=== PATIENT | female | born 1985 | race Caucasian/White ===

== ENCOUNTER 2020-03-04 10:17 | Emergency (ER) | payer BC, SELFPAY ==
[2020-03-04] VITALS (8 sets, daily range): BP systolic 138–191; BP diastolic 88–114; PULSE 80–102; RESP 15–31; TEMP 36.6; O2SAT 98–99; BMI 33.3
--- NOTE | 2020-03-04 10:31 | DI.RAD.S_ITS ---
PROCEDURE: XR CHEST 1V INDICATIONS: chest pain TECHNIQUE: One view of the chest was acquired. COMPARISON: None. FINDINGS: Surgical changes and devices: None. Lungs and pleura: Lungs are clear. No pleural effusions or pneumothorax. Mediastinum: Mediastinal contours appear normal. Heart size is normal. Bones and chest wall: No suspicious bony lesions. Overlying soft tissues appear unremarkable. IMPRESSION: No acute disease. Dictated by: Petros Crawford M.D. on 03/04/2020 at 10:55 Approved by: Petros Crawford M.D. on 03/04/2020 at 10:56
[2020-03-04 10:39] LABS: Add Manual Diff / Slide Review NO; Basophils Absolute Auto 0 /uL (0-100); Basophils Percent Auto 0.3 % (0-2); Eosinophils Absolute Auto 0 /uL (0-450); Eosinophils Percent Auto 0.3 % (2-4); Hematocrit 40.9 % (36-46); Hemoglobin 13.1 g/dL (12.0-16.0); Lymphocytes Absolute Auto 2200 /uL (1100-4500); Lymphocytes Percent Auto 19.5 % (25-40); Mean Corpuscular Hemoglobin 28.6 PG (26-34); Mean Corpuscular Volume 89.4 fL (80-100); Monocytes Absolute Auto 600 /uL (0-900); Monocytes Percent Auto 5.4 % (3-14); Neutrophils Absolute Auto 8200 /uL (1500-7000); Neutrophils Percent Auto 74.5 % (50-75); Platelet Count 281 X10^3/uL (150-400); Red Blood Cell Count 4.57 X10^6/uL (4.0-5.2); Red Cell Distribution Width 14.2 % (11.6-14.8)
[2020-03-04 10:49] LABS: Alanine Aminotransferase 16 IU/L (<35); Albumin 4.8 g/dL (3.5-5.0); Albumin Globulin Ratio 1.4 (1.0-2.8); Alkaline Phosphatase 91 U/L (38-126); Aspartate Aminotransferase 21 IU/L (14-36); BUN Creatinine Ratio 24.5 (6-22); Bilirubin Total 0.6 mg/dL (0.2-1.3); Blood Urea Nitrogen 13 mg/dL (7-17); Calcium 9.7 mg/dL (8.4-10.2); Carbon Dioxide 28 mmol/L (22-32); Chloride 101 mmol/L (98-107); Creatine Kinase 39 U/L (30-135); Estimated Glomerular Filt Rate > 60.0 mL/min (>60); Globulin 3.5 g/dL (1.7-4.1); Glucose 97 mg/dL (70-100); HEMOLYSIS < 15 (0-50); Lipase 57 U/L (23-300); Potassium 3.3 mmol/L (3.4-5.1); Sodium 138 mmol/L (137-145); Total Protein 8.3 g/dL (6.3-8.2)
[2020-03-04 10:50] LABS: INR 1.2 (0.9-1.3); Prothrombin Time 13.6 SECONDS (10.1-12.7)
--- NOTE | 2020-03-04 10:51 | ED.ALLEREA ---
HPI - Allergic Reaction General Chief complaint: Allergic Reaction Stated complaint: chest pain/throat constriction last night Time Seen by Provider: 03/04/20 10:36 Source: patient Mode of arrival: Ambulatory Limitations: no limitations History of Present Illness HPI narrative: This is a 34-year-old female comes emergency department with complaint of what she thought might be an allergic reaction last night. Patient states she was feeling very well yesterday her lightheaded having some chest discomfort that she describes as tightness. She is supposed to start her menses yesterday and attributed her symptoms to that. Last night her throat felt tight although she never felt like she was short of breath or that she could not breathe. She felt like her stomach was flipping and she had her face felt red. Patient states this is similar to when she has had prior anaphylactic reactions. She did not have any exposures her known allergies are bee stings and pineapple and she gets hives with beta-blockers. Patient took Benadryl, used her inhaler in about 40 minutes later started to feel improved. She has continued to have the chest pressure sensation sort of substernal and on the left. She states that her brother did note she was wheezing when this occurred. She also tried several Tums. She states she has had several months of sinus infection type symptoms was on antibiotics but those have been improving. She denies fevers, chills no cold, cough or congestion. Patient states no nausea or vomiting. No diarrhea or constipation. She noticed her hands have felt a little more swollen. She denies any shortness of breath at any point just a tightness sensation in her chest. She did have a flight that required about 8 hours of travel time 4 weeks ago. She has not any oral contraceptives. She does not have any prior history of emboli. She does take verapamil regularly for a tachycardia which she describes as sinus tachycardia. She states that her primary care told her she had an EKG that could be normal but there were some mild changes hand they ordered a stress test. Eight years ago she had a workup for the tachycardia which she was told was benign. She also takes hydrochlorothiazide for hypertension which has been longstanding since high school and she has had a significant workup including renal ultrasound. She denies any cardiac history or hypertension history, emboli in her family. Her only surgical history is lymph node removal in her arm. No tobacco, no alcohol or illicit. Related Data Previous Rx's Medication Instructions Recorded prednisone 40 mg PO DAILY #6 tab 03/04/20 Allergies Allergy/AdvReac Type Severity Reaction Status Date / Time bee venom protein (honey bee) Allergy Verified 03/04/20 10:29 Beta-Blockers Allergy Hives Verified 03/04/20 10:29 (Beta-Adrenergic Bloc pineapple Allergy Verified 03/04/20 10:29 Review of Systems Review of Systems ROS Unobtainable: All systems reviewed & are unremarkable except as noted in HPI and below Patient History Medical History (Updated 03/04/20 @ 10:58 by Shannon Allen DO) Hypertension Tachycardia Social History Smoking Status: Never smoker Smoking Status: Never smoker alcohol intake frequency: other Substance Use Type: does not use Exam Narrative Exam Narrative: GENERAL: Alert and oriented x three, well-nourished female in mild distress HEENT: Head normocephalic, atraumatic, EOMI, pupils reactive, face symmetric, moist mucous membranes, no facial swelling. No stridor. No difficulty with speech. NECK: Supple, full range of motion CARDIOVASCULAR: Regular rate and rhythm without murmurs, rubs or gallops. No JVD. No swelling bilateral lower extremities. RESPIRATORY: Breath sounds equal bilaterally, no wheezes rales or rhonchi. No tachypnea accessory muscle use. ABDOMEN: Soft, nontender. Normoactive bowel sounds all 4 quadrants. No guarding or rebound, rigidity, no mass : No CVA tenderness EXTREMITIES: Normal range of motion, no clubbing or edema. Neurovascularly intact NEUROLOGICAL: Cranial nerves II through XII grossly intact. Moving all extremities SKIN: Warm, dry, no petechiae, no rashes or lesions. Initial Vital Signs Initial Vital Signs: Vital Signs Temperature 98 F 03/04/20 10:20 Pulse Rate 102 H 03/04/20 10:20 Respiratory Rate 18 03/04/20 10:20 Blood Pressure 191/114 H 03/04/20 10:20 Pulse Oximetry 98 03/04/20 10:20 Course Orders Ordered: ED Orders 03/04/20 10:27 Complete Blood Count AUTO DIFF Stat Comprehensive Metabolic Panel Stat D Dimer Stat Lipase Stat Magnesium Stat Partial Thromboplastin Time Stat Test Serum,Qual Stat Prothrombin Time INR Stat Troponin & CK Cardiac Panel Stat 03/04/20 10:31 XR chest 1V Stat EKG-12 Lead Stat Discontinued Medications Potassium Chloride (Potassium Chloride 20 Meq/15 Ml Udc) 40 meq PO NOW ONE Stop: 03/04/20 11:03 Last Admin: 03/04/20 11:13 Dose: 40 meq Documented by: KAT Reevaluation(s) Reevaluation #1: Recheck patient is feeling improved. Her blood pressure has been improving at 166/99 most recently and continuing to trend downward. At this time I would not intervene with her blood pressure. Discussed with patient possibly an allergic reaction although my suspicion is more likely reactive airway/asthma specially with the description of wheezing overnight and the tightness in her throat and chest. She is not actively wheezing here in the department. She did firs any albuterol but we discussed doing a short course of steroids for several days. We did discuss patient's labs and findings and other some very mild hypokalemia which was replaced here in the department my suspicion for an emergent event is low. Time: 11:52 Vital Signs Vital signs: Vital Signs - 8 hr 03/04/20 11:30 03/04/20 11:37 03/04/20 11:39 Pulse Rate 80 86 Respiratory Rate 15 17 Blood Pressure 163/99 H 166/99 H Pulse Oximetry 98 99 03/04/20 12:16 Pulse Rate 87 Respiratory Rate 16 Blood Pressure 138/88 Pulse Oximetry 98 MDM - Allergic Reaction Lab Data Attestation: I reviewed the patient's lab results. Result diagrams: 03/04/20 10:27 03/04/20 10:27 Labs: Lab Results 03/04/20 03/04/20 03/04/20 Range/Units 10:27 10:27 10:27 WBC 11.0 (4.5-11.0) X10^3/uL RBC 4.57 (4.0-5.2) X10^6/uL Hgb 13.1 (12.0-16.0) g/dL Hct 40.9 (36-46) % MCV 89.4 (80-100) fL MCH 28.6 (26-34) PG MCHC 32.0 (30-36) % RDW 14.2 (11.6-14.8) % Plt Count 281 (150-400) X10^3/uL Neut % (Auto) 74.5 (50-75) % Lymph % (Auto) 19.5 L (25-40) % [place] % (Auto) 5.4 (3-14) % Eos % (Auto) 0.3 L (2-4) % Baso % (Auto) 0.3 (0-2) % Neut # (Auto) 8200 H (5891-1763) /uL Lymph # (Auto) 2200 (2546-8061) /uL [place] # (Auto) 600 (0-900) /uL Eos # (Auto) 0 (0-450) /uL Baso # (Auto) 0 (0-100) /uL PT 13.6 H (10.1-12.7) SECONDS INR 1.2 (0.9-1.3) APTT 33 (26.4-36.2) SECONDS D-Dimer (<230) ng/mL Sodium 138 (137-145) mmol/L Potassium 3.3 L (3.4-5.1) mmol/L Chloride 101 (98-107) mmol/L Carbon Dioxide 28 (22-32) mmol/L BUN 13 (7-17) mg/dL Creatinine 0.53 (0.52-1.04) mg/dL Estimated GFR > 60.0 (>60) mL/min BUN/Creatinine Ratio 24.5 H (6-22) Glucose 97 (70-100) mg/dL Calcium 9.7 (8.4-10.2) mg/dL Magnesium (1.6-2.3) mg/dL Total Bilirubin 0.6 (0.2-1.3) mg/dL AST 21 (14-36) IU/L ALT 16 (<35) IU/L Alkaline Phosphatase 91 (38-126) U/L Total Creatine Kinase 39 (30-135) U/L CK-MB (CK-2) TNP CK-MB (CK-2) Rel Index TNP Troponin I < 0.012 (0.01-0.034) ng/mL Total Protein 8.3 H (6.3-8.2) g/dL Albumin 4.8 (3.5-5.0) g/dL Globulin 3.5 (1.7-4.1) g/dL Albumin/Globulin Ratio 1.4 (1.0-2.8) Lipase 57 (23-300) U/L Serum , Qual (Negative) 03/04/20 03/04/20 03/04/20 Range/Units 10:27 10:27 10:27 WBC (4.5-11.0) X10^3/uL RBC (4.0-5.2) X10^6/uL Hgb (12.0-16.0) g/dL Hct (36-46) % MCV (80-100) fL MCH (26-34) PG MCHC (30-36) % RDW (11.6-14.8) % Plt Count (150-400) X10^3/uL Neut % (Auto) (50-75) % Lymph % (Auto) (25-40) % [place] % (Auto) (3-14) % Eos % (Auto) (2-4) % Baso % (Auto) (0-2) % Neut # (Auto) (7027-4008) /uL Lymph # (Auto) (8371-4384) /uL [place] # (Auto) (0-900) /uL Eos # (Auto) (0-450) /uL Baso # (Auto) (0-100) /uL PT (10.1-12.7) SECONDS INR (0.9-1.3) APTT (26.4-36.2) SECONDS D-Dimer < 200 (<230) ng/mL Sodium (137-145) mmol/L Potassium (3.4-5.1) mmol/L Chloride (98-107) mmol/L Carbon Dioxide (22-32) mmol/L BUN (7-17) mg/dL Creatinine (0.52-1.04) mg/dL Estimated GFR (>60) mL/min BUN/Creatinine Ratio (6-22) Glucose (70-100) mg/dL Calcium (8.4-10.2) mg/dL Magnesium 1.7 (1.6-2.3) mg/dL Total Bilirubin (0.2-1.3) mg/dL AST (14-36) IU/L ALT (<35) IU/L Alkaline Phosphatase (38-126) U/L Total Creatine Kinase (30-135) U/L CK-MB (CK-2) CK-MB (CK-2) Rel Index Troponin I (0.01-0.034) ng/mL Total Protein (6.3-8.2) g/dL Albumin (3.5-5.0) g/dL Globulin (1.7-4.1) g/dL Albumin/Globulin Ratio (1.0-2.8) Lipase (23-300) U/L Serum , Qual Negative (Negative) Imaging Data Chest x-ray: Radiologist's Impression: [address] [id number] ReportSigned Patient: Candida ValladaresMR#: [id number]: [id number]:[id number]/Sex: 34 / FDate of Service: 03/04/20Loc: EDAccession Number: [id number] Procedure: XR chest 1V Ordering Provider: Shannon Allen D.O. PROCEDURE: XR CHEST 1V INDICATIONS: chest pain TECHNIQUE: One view of the chest was acquired. COMPARISON: None. FINDINGS: Surgical changes and devices: None. Lungs and pleura: Lungs are clear. No pleural effusions or pneumothorax. Mediastinum: Mediastinal contours appear normal. Heart size is normal. Bones and chest wall: No suspicious bony lesions. Overlying soft tissues appear unremarkable. IMPRESSION: No acute disease. Dictated by: Petros Crawford M.D. on 03/04/2020 at 10:55 Approved by: Petros Crawford M.D. on 03/04/2020 at 10:56 ECG Data Attestation: I personally reviewed and interpreted this ECG as follows: Interpretation: Sinus rhythm with sinus arrhythmia. Cultures criteria for LVH may be normal variant. Rate of 85, MS 156, QRS of 94 and QTC 433. Patient states she has a prior EKG [place] which had an abnormality which may be normal. She is attempting to obtain this to her patient portal for review. Pacemaker function: abnormal pacing function MDM Narrative Medical decision making narrative: This is a 34-year-old female comes in with complaint of chest discomfort and throat tightness with some wheezing last night that occurred and continued chest discomfort today. Patient has a history significant for a unspecified tachycardia which she takes verapamil and hydrochlorothiazide for hypertension that was noted during high school. She states she had a significant cardiac workup 8 years ago for the hypertension and tachycardia. Patient is a EKG does show some mild variation we do not have prior available here for comparison. Patient's labs show mild hypokalemia with no other major abnormalities, negative troponin, D-dimer and no acute changes to CBC or Chem panel otherwise. Patient's chest x-ray is negative. She was hypertensive upon arrival to the emergency department. On recheck she is improving with BP and symptoms have almost totally resolved. Discharge Plan Departure Patient Disposition: Home Clinical Impression: Atypical chest pain Activity Restrictions/Additional Instructions: Follow up with your physician for recheck. Your labs show a mildly low potassium today. Your hydrochlorothiazide may be the cause of this. I would encourage you to continue follow up for stress testing. I suspect your symptoms may be more related to your asthma. Take steroids once daily until gone. Continue albuterol 1-2 puffs every 4 hours as needed for any wheezing or shortness of breath. Return for fevers, lightheadedness/passing-out, recurrent or worsening chest pain, shortness of breath that does not improve with albuterol, persistent vomiting, swelling of her extremities or other new or concerning symptoms. Prescriptions: New prednisone 20 mg tablet 40 mg PO DAILY Qty: 6 RF: 0 Referrals: Miscellaneous,Doctor, MD [Primary Care Provider] -
[2020-03-04 10:53] LABS: PTT Partial Thromboplastin Tim 33 SECONDS (26.4-36.2)
[2020-03-04 11:01] LABS: Troponin I < 0.012 ng/mL (0.01-0.034)
[2020-03-04] MEDS: POTASSIUM CHLORIDE 20 MEQ/15 ML UDC 40 MEQ PO (11:13)
[2020-03-04 11:14] LABS: D Dimer < 200 ng/mL (<230)
[2020-03-04 11:15] LABS: Magnesium 1.7 mg/dL (1.6-2.3)
[2020-03-04 11:37] LABS: Pregnancy Test Serum,Qual Negative (Negative)
== END 2020-03-04 12:18 | disposition home or self-care (01) ==
PROVIDERS: Emergency Provider Emergency Medicine
DX: R07.89 Other chest pain (principal); R42 Dizziness and giddiness; E87.6 Hypokalemia; R00.0 Tachycardia, unspecified; I10 Essential (primary) hypertension
CPT/HCPCS: 36415; 71045; 80053; 82550; 83690; 83735; 84484; 84703; 85025; 85379; 85610; 85730; 93005; 99281; 99284